=== PATIENT | male | born 1955 | race Caucasian/White ===

== ENCOUNTER 2024-07-19 10:22 | Emergency (ER) | payer BC, SELFPAY ==
--- NOTE | ~2024-07-19 | XR_ITS ---
EXAMINATION: XR chest 2V DATE: 07/19/2024 11:14 INDICATION: Cough and wheezing. TECHNIQUE: Frontal and lateral views of the chest were obtained. COMPARISON: None. FINDINGS: There is mild atelectasis at left lung base. No pleural effusion or pneumothorax. The heart size is normal. IMPRESSION: 1. Mild atelectasis at left lung base. Reviewed, dictated and finalized at location B. TIFICATION TECHNICIAN
[2024-07-19 10:30] VITALS: BP 177/95; PULSE 64; RESP 16; TEMP 36.4; O2SAT 98
[2024-07-19] MEDS: IPRATROPIUM 0.5 MG/ALBUTEROL SULFATE 2.5 MG AMPUL.NEB 3 ML INHALATION (11:14)
[2024-07-19] MEDS: methylPREDNISolone SOD SUCC 125 MG VIAL IM (11:14)
--- NOTE | 2024-07-19 11:44 | ED.GENADULT ---
HPI - General Adult General Chief complaint: Upper Respiratory Infection Stated complaint: Cough Source: patient Mode of arrival: ambulatory Limitations: no limitations History of Present Illness HPI narrative: Patient presents for evaluation of a cough for the past month. Cough was initially productive of clear sputum but his expectorant is now green in color. He reports wheezing and mild SOB. No fever, chills, nausea, vomiting, leg swelling or chest pain. He denies any recent sick contacts. He does not smoke. He has taken mucinex for his symptoms. Related Data Home Medications ?Medication ?Instructions ?Recorded ?Confirmed ?Last Taken ?Type hydrochlorothiazide 12.5 mg capsule 12.5 mg PO DAILY 07/19/24 Unknown History lisinopril 40 mg tablet 40 mg PO DAILY 07/19/24 Unknown History simvastatin 40 mg tablet 40 mg PO QPM 07/19/24 Unknown History Allergies Allergy/AdvReac Type Severity Reaction Status Date / Time No Known Allergies Allergy Verified 07/19/24 10:36 Review of Systems Review of Systems: CONSTITUTIONAL: Denies fever, chills, or sweats. EYES: Denies visual changes, redness, or discharge. ENT: Denies rhinorrhea, congestion, sore throat, or otalgia. CARDIOVASCULAR: Denies chest pain, palpitations, or edema. RESPIRATORY: Reports productive cough of green sputum with mild SOB and wheezing GASTROINTESTINAL: Denies abdominal pain, nausea, vomiting, or diarrhea. GENITOURINARY: Denies dysuria or hematuria. SKIN: Denies rash or itching. MUSCULOSKELETAL: Denies back pain, joint pain, or myalgia. NEUROLOGIC: Denies headache, numbness, dizziness, or weakness. PSYCHIATRIC: Denies anxiety or depression. [facility] Past Medical History Medical History Hyperlipidemia Hypertension Surgical History Surgical History History of surgery on lower extremity Family History Family History Mother Family history non-contributory Social History Social History Smoking status: Never smoker Substance use: never Gender identity (if verbalized by the patient): Male Exam Narrative: GENERAL: Well-appearing, well-nourished, and in no acute distress. HEAD: Normocephalic, atraumatic. EYES: PERRLA and EOMI. ENT: Nares clear, no rhinorrhea or epistaxis. Mucous membranes moist. Oropharynx without tonsillar hypertrophy exudate or other lesions. Bilateral TMs pearly rojas nonbulging NECK: Supple. No adenopathy or masses. No carotid bruits or JVD CHEST: Wheezing noted in posterior lung baxter. Diminished breath sounds throughout. Cough present on exam. HEART: Regular rate and rhythm. No murmur heard. Normal peripheral pulses. ABDOMEN: Soft, nontender, nondistended, normal active bowel sounds. EXTREMITIES: Normal range of motion. No edema. SKIN: Warm, dry, no rash. NEURO: No focal deficits. Alert and oriented x3. PSYCH: Normal mood and affect. Course Course Emergency Course: This is a 68 yr old male who presented for evaluation of one month history of cough. He was given a DuoNeb treatment and Solu-Medrol. He was able to expectorate green sputum. CXR read as atelectasis but clinical exam concerning for pneumonia. Through shared decision making opted to proceed with azithromycin, augmentin, prednisone and albuterol. Increase hydration. OTC agents for symptom management. Follow up with primary provider. Go to the ER for worsening symptoms. Pt in agreement with plan of care. Level of Care: Express Care Visit Vital Signs Vital signs: Vital Signs Temperature 36.4 C L 07/19/24 10:30 Pulse Rate 64 07/19/24 10:30 Respiratory Rate 16 07/19/24 10:30 Blood Pressure 177/95 H 07/19/24 10:30 Pulse Oximetry 98 07/19/24 10:30 Oxygen Delivery Room Air 07/19/24 10:30 Temperature 36.4 C L 07/19/24 10:30 Pulse Rate 64 07/19/24 10:30 Respiratory Rate 16 07/19/24 10:30 Blood Pressure 177/95 H 07/19/24 10:30 Pulse Oximetry 98 07/19/24 10:30 Oxygen Delivery Room Air 07/19/24 10:30 Medical Decision Making Vital Signs Vital Signs: Vital Signs Temperature 36.4 C L 07/19/24 10:30 Pulse Rate 64 07/19/24 10:30 Respiratory Rate 16 07/19/24 10:30 Blood Pressure 177/95 H 07/19/24 10:30 Pulse Oximetry 98 07/19/24 10:30 Oxygen Delivery Room Air 07/19/24 10:30 Temperature 36.4 C L 07/19/24 10:30 Pulse Rate 64 07/19/24 10:30 Respiratory Rate 16 07/19/24 10:30 Blood Pressure 177/95 H 07/19/24 10:30 Pulse Oximetry 98 07/19/24 10:30 Oxygen Delivery Room Air 07/19/24 10:30 Imaging Data Radiologist's impression: EXAMINATION: XR chest 2V DATE: 07/19/2024 11:14 INDICATION: Cough and wheezing. TECHNIQUE: Frontal and lateral views of the chest were obtained. COMPARISON: None. FINDINGS: There is mild atelectasis at left lung base. No pleural effusion or pneumothorax. The heart size is normal. IMPRESSION: 1. Mild atelectasis at left lung base Discharge Plan Discharge Clinical Impression: At risk for pneumonia Patient Disposition: Home, Self-Care Condition: Stable Instructions: Antibiotic Form, Pneumonia (ED) Patient Language: Togolese Prescriptions: New azithromycin 250 mg tablet See Rx Instructions .ROUTE .COMPLEX Qty: 6 0RF Rx Instructions: For 250 mg dose pack: take 500 mg today (day 1), then 250 mg for 4 days (days 2-5) amoxicillin-pot clavulanate 875-125 mg tablet 1 tablet PO Q12H Qty: 20 0RF prednisone 50 mg tablet 50 mg PO DAILY Qty: 5 0RF albuterol sulfate [Ventolin HFA] 90 mcg/actuation HFA aerosol inhaler 2 puff inhalation QID PRN (Reason: shortness of breath or wheezing) Qty: 8.5 0RF No Action simvastatin 40 mg tablet 40 mg PO QPM lisinopril 40 mg tablet 40 mg PO DAILY hydrochlorothiazide 12.5 mg capsule 12.5 mg PO DAILY Follow-up/Referrals: Harms,Desmond Sneed M.D. [Primary Care Provider] - Time of Disposition: 11:40
--- OUTSIDE RECORDS SUMMARY | 2024-07-20 23:12 | XMS_ITS | Referral Summary ---
Author Organization [facility] Address [facility] [place] [address] Care Team Providers Care Tank Systems Maintainer Name Role Phone Desmond Gillespie MD Primary Care Provider [phone] Allergies No known active allergies Medications aspirin (Adult Low Dose Aspirin) 81 mg enteric coated tablet Take 1 tablet (81 mg total) by mouth daily 4 Active inhalational spacing device (Aerochamber MV) spacerIndications: Lower respiratory infection Use with albuterol inhaler 1 each [address] (NexIUM) 20 mg capsuleIndications :Gastroesophageal reflux disease, unspecified whether esophagitis present TAKE 1 CAPSULE EVERY DAY BEFORE BREAKFAST 90 capsule 4 4 Active hydroCHLOROthiazid e (MICROZIDE) 12.5 mg capsuleIndications :HTN (hypertension), benign Take 1 capsule (12.5 mg total) by mouth every morning 90 capsule 4 4 Active lisinopriL (PRINIVIL,ZESTRIL) 40 mg tabletIndications: HTN (hypertension), benign Take 1 tablet (40 mg total) by mouth daily 90 tablet 4 4 Active simvastatin (ZOCOR) 40 mg tabletIndications: Mixed hyperlipidemia Take 1 tablet (40 mg total) by mouth nightly 90 tablet 4 4 Active triamcinolone (KENALOG) 0.5 % creamIndications:P soriasis Apply topically 3 (three) times a day 30 g 4 Active albuterol HFA (PROVENTIL HFA,VENTOLIN HFA,PROAIR HFA) 90 mcg/actuation inhalerIndications :Lower respiratory infection Inhale 2 puffs every 4 (four) hours as needed for shortness of breath or wheezing (cough) 18 g Active Active Problems Problem Noted Date Diagnosed Date Psoriasis 03/28/2024 Assessment & Plan (03/28/2024 3:49 PM CDT): Stable on p.r.n. triamcinolone. Gastroesophageal reflux disease 03/28/2024 Assessment & Plan (03/28/2024 3:49 PM CDT): Stable on omeprazole. Avoid dietary triggers. Will continue to monitor. Personal history of colonic polyps 11/26/2023 History of colon polyps 06/10/2023 Assessment & Plan (06/10/2023 8:58 AM PLASTICS ENGINEER): Due for follow-up colonoscopy. He is agreeable. Referral placed. Closed fracture of right ankle 01/11/2023 Mixed hyperlipidemia 04/25/2021 Assessment & Plan (03/28/2024 3:47 PM CDT): Well controlled on simvastatin. Reviewed lifestyle recommendations. Will continue to monitor. Assessment & Plan (06/10/2023 8:56 AM PLASTICS ENGINEER): Lipid panel reviewed. Nonfasting. Mildly elevated triglycerides. Will continue with statin. Tolerating without side. HTN (hypertension), benign 09/29/2017 Assessment & Plan (03/28/2024 3:47 PM CDT): Well controlled on lisinopril, hydrochlorothiazide. No changes. Will continue to monitor. Assessment & Plan (06/10/2023 8:57 AM PLASTICS ENGINEER): Normotensive. No changes. Will continue to monitor. Reviewed dietary recommendations. He is pre contemplative. Coronary artery disease invo [place]ving [place] coronary artery of [place] heart without angina pectoris 09/29/2017 Assessment & Plan (03/28/2024 3:46 PM CDT): Denies chest pain. Compliant with medication regimen. Continues following Cardiology. Red flags reviewed. Assessment & Plan (06/10/2023 8:57 AM PLASTICS ENGINEER): Compliant with medications. Denies chest pain, shortness for breath. Continues to follow with Cardiology as well. H/O ST elevation myocardial infarction 8 S/P coronary artery stent placement 09/29/2017 Assessment & Plan (03/28/2024 3:47 PM CDT): Denies chest pain. Continues following with Cardiology. Compliant medication regimen. Resolved Problems Problem Noted Date Diagnosed Date Resolved Date Dyslipidemia 09/29/2017 04/25/2021 Immunizations Name Administration Dates Next Due Influenza, Unspecified 03/28/2024(Deferr ed: Patient Refused),06/10/2023(Deferred: Patient Refused),09/15/2021(Deferred: Patient Refused),02/26/2021(Deferred: Patient Refused),08/23/2020(Deferred: Patient Refused),06/28/2019(Deferred: Patient Refused),06/27/2019(Deferred: Patient Refused),03/28/2018(Deferred: Patient Refused),03/03/2018(Deferred: Patient Refused),07/05/2017(Deferred: Patient Refused) Moderna SARS-CoV-2 Monovalen t Vaccination (12+ YRS) 08/10/2020,08/10/2020 Pneumococcal Conjugate PCV 13 08/23/2020 Pneumococcal Conjugate Pcv20 03/28/2024, 06/10/2023(Deferred: Patient Refused) Social History Tobacco Use Types Packs/Day Years Used Date Smoking Tobacco: Never Smokeless Tobacco: Never Alcohol Use Standard Drinks/Week Comments No 0 (1 standard drink = 0.6 oz pur e alcohol) AUDIT-C Answer Date Recorded Q1: How often do you have a drink containing alc ohol? Monthly or less 06/10/2023 Q2: How many drinks containi ng alcohol do you have on a typical day when you are drinking? 1 or 2 06/10/2023 Q3: How often do you have si x or more drinks on one occasion? Never 06/10/2023 PHQ-2 Answer Date Recorded PHQ-2 Total Score (If total score is 3 or more points, staff should administer the PHQ-9) 0 06/10/2023 Personal Safety Answer Date Recorded Have you ever been in or are you currently in a harmful physical or emotional relationship or is someone making you feel afraid or unsafe? Denies 01/15/2023 Sex and Gender Information Value Date Recorded Sex Assigned at Not on file Legal Sex Male 12:46 AM PLASTICS ENGINEER Gender Identity Not on file Sexual Orientation Not on file Last Filed Vital Signs Vital Sign Reading Time Taken Comments Blood Pressure 138/80 03/28/2024 3:14 PM CDT Pulse 61 03/28/2024 3:14 PM CDT Temperature 36.5 ??C (97.7 ??F) 03/28/2024 3:14 PM CD T Respiratory Rate 24 03/28/2024 3:14 PM CDT Oxygen Saturation 93% 03/28/2024 3:14 PM CDT Inhaled Oxygen Concentration - - Weight 103.5 kg (228 lb 3.2 oz) 03/28/2024 3:14 PM CDT Height 177.8 cm (5' 10 ) 03/28/2024 3:14 PM CDT Body Mass Index 32.74 03/28/2024 3:14 PM CDT Plan of Treatment Upcoming Encounters Date Type Department Care Team (Late st Contact Info) Description 08/28/2024 8:00 AM PLASTICS ENGINEER Hospital Encounter [address] [address] Berny Kemp MD 4 [facility] [address] [place] [address] [place] [id number] 08/28/2024 8:00 AM PLASTICS ENGINEER - 08/28/2024 8:30 AM PLASTICS ENGINEER Surgery [address] [address] Berny Kemp MD 4 [facility] [place] [address] COLONOSCOPY Scheduled Procedures Name Priority Associated Diagnoses Date/Ti me COLONOSCOPY Personal history of colonic polyps 08/28/2024 8:00 AM PLASTICS ENGINEER Medical Devices Implanted Type Area Tobacco Curer Device Identifier Shelf Expiration Date Model / Serial / Lot Synthes 12mm [id number] .5mm 2 Hole Collar 1/3 Tubular Plate Bone Stainless 241.32 - [id number] Implanted:Qty: 1 on 01/15/2023 by Joshua Landin MD at [facility] Right: Ankle Synthes I 241.32 / / Synthes 3.5mm 6mm 65mm 2.5mm Self Tap Small Hexagonal Socket Low Profile 204.865 - [id number] Implanted:Qty: 1 on 01/15/2023 by Joshua Landin MD at [facility] Right: Ankle Synthes I 204.865 / / Synthes 3.5mm 6mm 75mm 2.5mm Self Tap Small Hexagonal Socket Low Profile 204.875 - [id number] Implanted:Qty: 1 on 01/15/2023 by Joshua Landin MD at [facility] Right: Ankle Synthes I 204.875 / / Procedures Procedure Name Priority Date/Time Associated Diagnosis Comments PSA SCREEN Routine 05/31/2023 11:25 AM PLASTICS ENGINEER Encounter for prostate cancer screening COLONOSCOPY IMAGES 10/16/2015 from Last 3 Months or Most Recently Relevant to Health Maintenance Results * PSA screen (05/31/2023 11:25 AM PLASTICS ENGINEER) PSA-Total 3.12 <=5.40 ng/mL [facility] ([place]AINA) Comment: Interpretive Data ?AGE ? SEX ?REFERENCE INTERVAL 0 minutes-150 years ?Female ?None 0 minutes-49 years ? Male ?None ? 50-59 years ? Male ?0-3.90 ? 60-69 years ? Male ?0-5.40 ? 70-79 years ? Male ?0-6.20 ? 80-150 years ?Male ?0-6.20 The Elise PSA Total assay procedure was used. Results from different manufacturers or methods may not be comparable. Serial testing should be performed using the same method. Current interpretive data last revised 21. Testing performed by: [facility], [address] [place] [address]., [id number] Blood 05/31/2023 11:2 5 AM PLASTICS ENGINEER 05/31/2023 5:49 PM PLASTICS ENGINEER Xochitl Nye NURSE CARE MANAGER LAB BLOOD ORDERABLES Final Result [facility] ([place]) 1 [facility] Department [place] [address] * COLONOSCOPY IMAGES (10/16/2015) Anatomical Region Laterality Modality Other Narrative 10/16/2015 Ordered by an unspecified provider. Historical Provider GI PROCEDURE ORDERABLES F inal Result from Last 3 Months or Most Recently Relevant to Health Maintenance [place] [address] [place] [address] [employer] ACCESS CHOICE ANTHEM ACCESS CHOICE ANTHEM ACCESS CHOICE Member Subscriber Plan / Payer ( fective 2022-Present) Name:Joel Lyn Member ID:[id number] Relation to Subscriber:Self Name:Joel Lyn Subscriber ID:[id number] Payer ID:[id number] (NAIC) Type:[employer] Address: [address] [place] [address] Care Teams Tank Systems Maintainer Relationship Specialty Start Date End Date Desmond Gillespie MD [address] [place] [address] PCP - General 09/25/16
--- OUTSIDE RECORDS SUMMARY | 2024-07-20 23:12 | XMS_ITS | Clinical Summary ---
Author Organization [facility] Address [facility] [place] [address] Care Team Providers Care Trade Show Manager Name Role Phone Desmond Gillespie MD Primary Care Provider [phone] Allergies No known active allergies Medications aspirin [...] 06/10/2023 Assessment & Plan (06/10/2023 8:58 AM ANTHROPOLOGIST): Due for follow-up colonoscopy. He is agreeable. Referral placed. Closed fracture of right ankle 01/11/2023 Mixed hyperlipidemia 04/25/2021 Assessment & Plan (03/28/2024 3:47 PM CDT): Well controlled on simvastatin. Reviewed lifestyle recommendations. Will continue to monitor. Assessment & Plan (06/10/2023 8:56 AM ANTHROPOLOGIST): Lipid panel reviewed. Nonfasting. Mildly elevated triglycerides. Will continue with statin. Tolerating without side. HTN (hypertension), benign 09/29/2017 Assessment & Plan (03/28/2024 3:47 PM CDT): Well controlled on lisinopril, hydrochlorothiazide. No changes. Will continue to monitor. Assessment & Plan (06/10/2023 8:57 AM ANTHROPOLOGIST): Normotensive. No changes. Will continue to monitor. Reviewed dietary recommendations. He is pre contemplative. Coronary artery disease invo lving [place] coronary artery of [place] heart without angina pectoris 09/29/2017 Assessment & Plan (03/28/2024 3:46 PM CDT): Denies chest pain. Compliant with medication regimen. Continues following Cardiology. Red flags reviewed. Assessment & Plan (06/10/2023 8:57 AM ANTHROPOLOGIST): Compliant with medications. Denies chest pain, shortness [...] Pneumococcal Conjugate Pcv20 03/28/2024, 06/10/2023(Deferred: Patient Refused) Surgical History Surgery Date Site/Laterality Comments CORONARY STENT PLACEMENT 2007 Coronary Stent Placement OTHER SURGICAL HISTORY right lateral menisectomy: meniscus Medical History Medical History Date Comments Cardiovascular disease Coronary Artery Disease Hypertension Hypertension Hypercholesterolemia High choles terol Gastroesophageal reflux disease GERD Neoplasm of testis Cancer, testi cular Hx Other Medical 2000 right lateral m enisectomy Family History Medical History Relation Name Comments COPD Father COPD; COPD Mother COPD; Stent Mother Coronary Stent Placement; Anesthesia problems Neg Hx Relation Name Status Comments Father Alive Mother Alive Social History Tobacco Use Types Packs/Day Years [...] on file Legal Sex Male 12:46 AM ANTHROPOLOGIST Gender Identity Not on file Sexual Orientation Not on file Obstetrics History Last Filed Vital Signs Vital Sign Reading [...] Height 177.8 cm (5' 10 ) 03/28/2024 3: 14 PM CDT Body Mass Index 32.74 03/28/2024 3:14 PM CDT Plan of Treatment Upcoming Encounters Date Type Department Care Team (Late st Contact Info) Description 08/28/2024 8:00 AM ANTHROPOLOGIST Hospital Encounter [facility] [address] [place] [address] Berny Kemp MD [address] [place] [address] [place] [address] 08/28/2024 8:00 AM ANTHROPOLOGIST - 08/28/2024 8:30 AM ANTHROPOLOGIST Surgery [facility] [address] [place] [address] Berny Kemp MD [address] [place] [address] [address] COLONOSCOPY Scheduled Procedures Name Priority Associated Diagnoses Date/Ti me COLONOSCOPY Personal history of colonic polyps 08/28/2024 8:00 AM ANTHROPOLOGIST Health Maintenance Due Date Last Done Comments Hepatitis C Screening 1955 DTaP/Tdap/Td Vaccine (1 - Tdap) 1965 Hepatitis B Screening 1972 Zoster Vaccine (1 of 2) 2004 Colon Cancer Screening-Colonoscopy 10/15/2022 10/16/2015, 10/16/2015 Covid-19 Vaccine (2023-2 5 season) 2024 09/07/2020, 08/10/2020, 08/10/2020 Influenza Vaccine (#1) 2024 Depression Screening 06/10/2024 06/10/2023, 09/15/2021, 08/23/2020, Additional history exists Well Visit 65+ 06/10/2024 06/10/2023, 06/27/2019 Fall Risk Assessment 03/28/2025 03/28/2024, 06/10/2023, 01/15/2023, Additional history exists Prostate Cancer Screening-PSA 05/31/2025 05/31/2023, 06/27/2019 Colon Cancer Screening-CT Colonography Discontinued 10/16/2015, 10/16/2015 Colon Cancer Screening-DNA Stool Discontinued 10/16/19 16, 10/16/2015 Colon Cancer Screening-FIT Discontinued 10/16/2015, Colon Cancer Screening-Sigmoidoscopy Discontinued 10/16/2015, 10/16/2015 Pneumococcal vaccine 65+ Completed 03/28/2024, 07/30 Medical Devices Implanted Type Area [employer] Sales Manager Device Identifier Shelf Expiration Date Model / Serial / Lot Synthes 12mm [id number] .5mm 2 Hole Collar 1/3 Tubular Plate Bone Stainless 241.32 - [id number] Implanted:Qty: 1 on 01/15/2023 by Joshua Landin MD at [facility] Right: Ankle Synthes I 241.32 / / Synthes 3.5mm 6mm 65mm 2.5mm Self Tap Small Hexagonal Socket Low Profile 204.865 - [id number] Implanted:Qty: 1 on 01/15/2023 by Joshua Landin MD at [facility] Right: Ankle Synthes I 204.865 / / Synthes 3.5mm 6mm 75mm 2.5mm Self Tap Small Hexagonal Socket Low Profile 204.875 - [id number] Implanted:Qty: 1 on 01/15/2023 by Joshua Landin MD at [facility] Right: Ankle Synthes I 204.875 / / Procedures Procedure Name Priority Date/Time Associated Diagnosis Comments PSA SCREEN Routine 05/31/2023 11:25 AM ANTHROPOLOGIST Encounter for prostate cancer screening COLONOSCOPY IMAGES 10/16/2015 from Last 3 Months or Most Recently Relevant to Health Maintenance Results * PSA screen (05/31/2023 11:25 AM ANTHROPOLOGIST) PSA-Total 3.12 <=5.40 ng/mL [facility] ([place]) [...] data last revised 21. Testing performed by: [facility], [address] [place] [address], [place]., [address] Blood 05/31/2023 11:2 5 AM ANTHROPOLOGIST 05/31/2023 5:49 PM ANTHROPOLOGIST Xochitl Nye GLAZE WIPER LAB BLOOD ORDERABLES Final Result [facility] ([place]) 1 [facility] Department of Laboratories [place] [id number] * COLONOSCOPY IMAGES (10/16/2015) Anatomical Region Laterality Modality Other Narrative 10/16/2015 Ordered by an unspecified provider. Historical Provider GI PROCEDURE ORDERABLES F inal Result from Last 3 Months or Most Recently Relevant to Health [place] [address] MEDICARE [facility] ACCESS CHOICE ANTHEM ACCESS CHOICE ANTHEM ACCESS CHOICE Care Teams Trade Show Manager Relationship Specialty Start Date End Date Desmond Gillespie MD [address] [place] [address] PCP - General 09/25/16
--- OUTSIDE RECORDS SUMMARY | 2024-07-20 23:12 | XMS_ITS | Clinical Summary ---
Author Organization [facility] Address [address], [address] [address] Phone Care Team Providers Care [employer] Name Role Phone Desmond Gillespie MD Primary Care Provider [phone] Phi Galloway DO Unavailable [phone] Allergies No known active allergies Medications lisinopril (PRINIVIL, ZESTRIL) 10 MG Tablet Take 10 mg by mouth daily. Active aspirin EC 81 MG Tablet Delayed Response Take 81 mg by mouth daily. Active Niacin-Simvasta tin 500-40 MG TABLET SR 24 HR Take by mouth daily. Active esomeprazole (NEXIUM) 40 MG CAPSULE DELAYED RELEASE Take 40 mg by mouth every morning (before breakfast). Active Immunizations Immunization Administration Dates Next Due Covid-19, Mrna, Lnp-s, PF, 1 00 mcg/0.5 mL Dose (Moderna) 09/07/2020,08/10/2020 Social History Tobacco Use Types Packs/Day Years Used Date Smoking Tobacco: Never Assessed Sex and Gender Information Value Date Recorded Sex Assigned at Not on file Legal Sex Male 5:32 PM CDT Gender Identity Not on file Sexual Orientation Not on file Plan of Treatment Health Maintenance Due Date Last Done Comments Hepatitis C Virus (HCV) Screening 1955 TdaP Immunization 1955 Cologuard 2004 Immunochemical Fecal Occult Blood 2004 Zoster Immunization (1 of 2) 2004 PSA Discussion 2009 Pneumococcal Immunization (5 0+ years) (2 of 2 - PPSV23) 08/23/2021 08/23/2020 Influenza Immunization (#1) 2024 SARS-COV-2 Immunization ( season) 2024 05/14/2021, 09/07/2020, 08/10/2020 Colonoscopy 10/15/2025 10/16/2015 Colorectal Cancer Screening 10/15/2025 Respiratory Syncytial Virus (RSV) Immunization (Adult) (1 - 1-dose 75+ series) 2029 10/16/2015 Pneumococcal Immunization Combined Discontinued 08/23/2020 Hepatitis B Immunization Aged Out No longer eligible based on patient's age to complete this topic Meningococcal Immunization (ACWY) Aged Out No longer eligible based on patient's age to complete this topic Rotavirus Immunization Aged Out No lo nger eligible based on patient's age to complete this topic Procedures Procedure Name Priority Date/Time Associated Diagnosis Comments COLONOSCOPY Routine 10/16/2015 from Last 3 Months or Most Recently Relevant to Health Maintenance Results * COLONOSCOPY (10/16/2015) Phi Galloway DO PROCEDURE/MINOR SURGICAL ORDERA BLES Final Result from Last 3 Months or Most Recently Relevant to [place] [address] [employer] Member Subscriber Plan / Payer (Ef fective for All Dates) Name:Joel Lyn Relation to Subscriber:Self Name:Jole Lyn Payer ID:[id number] Group ID:Not on file Type:Not on file Address: [facility] [address] [place] [phone] Care Teams [employer] Relationship Specialty Start Date End Date Desmond [place] [address] PCP - General Internal Medicine 10/16/15 Phi Galloway DO [address] [place] [address] Consulting Physician Gastroenterology 10/16/15
== END 2024-07-19 11:45 | disposition home or self-care (01) ==
PROVIDERS: Emergency Provider Nurse Practitioner; PCP Family Medicine
DX: R05.9 Cough, unspecified (principal); R06.2 Wheezing; R06.02 Shortness of breath; J98.11 Atelectasis; I10 Essential (primary) hypertension; E78.5 Hyperlipidemia, unspecified
CPT/HCPCS: 71046; 94640; 96372; 99213; G0463; J2919